=== PATIENT | male | born 1960 | race African-American/Black ===

== ENCOUNTER 2019-05-13 06:17 | Day surgery (SDC) | payer MEDICARE, MEDICAID ==
[~2019-05-13] VITALS: Ht 185.4 cm; Wt 82.1 kg
[2019-05-13] VITALS (10 sets, daily range): BP systolic 101–128; BP diastolic 65–79
[2019-05-13] MEDS ORDERED: Lidocaine 1% MPF 10mg/ml 5ml ONE (07:37)
[2019-05-13] MEDS ORDERED: Ropivacaine 5mg/ml Vial 30ml INJ ONE (07:42)
[2019-05-13] MEDS ORDERED: Midazolam 2mg/2ml Inj ONE (07:54)
[2019-05-13] MEDS ORDERED: fentaNYL 100 mcg/2 mL IV ONE (07:54)
[2019-05-13] MEDS ORDERED: Propofol 200mg/20ml IV ONE (07:56)
[2019-05-13] MEDS ORDERED: Ketorolac 30mg Inj ONE (07:57)
[2019-05-13] MEDS ORDERED: Bupivacaine w/Epi 0.5% 30ml Vial INJ ONE (07:58)
[2019-05-13] MEDS ORDERED: NS Irrig 4000ml IRRIG ONE ×2 (08:14→09:40)
[2019-05-13] MEDS ORDERED: ENSURE HIGH PR414 ML PO (08:35)
[2019-05-13] MEDS ORDERED: VALIUM10 MG ORAL (08:36)
[2019-05-13] MEDS ORDERED: trintellix PO (08:38)
[2019-05-13] MEDS ORDERED: PROAIR HFA8.5 GM INH (08:39)
[2019-05-13] MEDS ORDERED: GABAPENTIN600 MG ORAL (08:40)
[2019-05-13] MEDS ORDERED: TRAZODONE HCL150 MG ORAL (08:42)
[2019-05-13] MEDS ORDERED: SEROSTIM6 M1 SQ (08:42)
[2019-05-13] MEDS ORDERED: MULTIVITAMINS1 EAC2 ORAL (08:43)
[2019-05-13] MEDS ORDERED: AMLODIPINE BESYL5 MG ORAL (08:44)
[2019-05-13] MEDS ORDERED: Descovy PO (08:45)
[2019-05-13] MEDS ORDERED: FLOMAX0.4 MG ORAL (08:48)
[2019-05-13] MEDS ORDERED: ASPIR 8181 MG ORAL (08:48)
[2019-05-13] MEDS ORDERED: Sterile Water Irrig 1000ml IRRIG ONE (09:00)
[2019-05-13] MEDS ORDERED: NS Irrig 1000ml ONE (09:00)
[2019-05-13] MEDS ORDERED: LR 1000ml 1,000 ML IVLG SCH (09:03)
--- NOTE | 2019-05-13 09:03 | Anethesia Preoperative Eval ---
Anesthesia Pre-op PMH/ROS General Date of Evaluation: May 13, 2019 Time of Evaluation: 08:40 Anesthesiologist: Lashay ASA Score: ASA 3 Mallampati Score Class I : Soft palate, uvula, fauces, pillars visible Class II: Soft palate, uvula, fauces visible Class III: Soft palate, base of uvula visible Class IV: Only hard plate visible Mallampati Classification: Class II Surgeon: [place] Diagnosis: R shoulder pain Surgical Procedure: R shoulder scope Anesthesia History: none Social History: smoking - h/o, alcohol use - h/o abuse clean now, drug use - crystal math clean now Family History: no anesthesia problems Allergies: Coded Allergies: No Known Allergies (Verified Allergy, Unknown, 12/30/06) Medications: see eMAR Patient NPO?: Yes Past Medical History Cardiovascular: Reports: HTN - stable on pills; Denies: CAD, [place], valve dz, arrhythmia, other Pulmonary: Denies: asthma, COPD, NACH[place], other Gastrointestinal/Genitourinary: Reports: GERD; Denies: CRI, ESRD, other Neurologic/Psychiatric: Reports: depression/anxiety, other - chronic pain; Denies: dementia, CVA, TIA Endocrine: Reports: hypothyroidism; Denies: DM, steroids, other HEENT: Denies: cataract (L), cataract (R), glaucoma, [place] (L[place] (R), other Hematology/Immune: Reports: other - HIV on antivirals, viral load undetectible ; Denies: anemia, DVT, bleeding disorder Musculoskeletal/Integumentary: Reports: OA; Denies: RA, DJD, DDD, edema, other PMH Narrative: as above PSxH Narrative: hernia repair, lumbar spine fusion Anesthesia Pre-op Phys. Exam Physician Exam Last Vital Signs Date Time Temp Pulse Resp B/P (MAP) Pulse Ox O2 Delivery O2 Flow Rate FiO2 05/13/19 07:34 Room Air 05/13/19 07:08 98.8 75 18 122/74 100 Constitutional: NAD Neurologic: CN 2-12 intact Cardiovascular: RRR, no M/R/G Respiratory: CTA Gastrointestinal: S/NT/ND Airway Exam Mallampati Score: Class II MO: full Neck: flexible ROM: full Teeth: missing, broken Dentures: no upper, no lower Anesthesia Pre-op A/P Labs see chart Studies Pre-op Studies: EKG Risk Assessment & Plan Assessment: ASA 3 Plan: GA with LMA R brachial plexus block for postop pain control Status Change Before Surgery: No Pre-Antibiotics Drug: Ancef 2gr. Given Within 1 Hr of Incision: Yes Time Given: 09:40 Preston Metz MD May 13, 2019 09:03
--- NOTE | 2019-05-13 09:10 | Pre-Procedure Note/Attestation ---
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 I attest that I re-evaluated the patient just prior to the surgery and that there has been no change in the patient's H&P, except as documented below: Santana Mohamud MD May 13, 2019 09:10
[2019-05-13] MEDS ORDERED: DiphenhydrAMINE 50mg/ml Inj IVP PRN (09:15)
[2019-05-13] MEDS ORDERED: Meperidine 25mg/0.5ml Inj (FOR RIGORS ONLY) IV PRN (09:15)
[2019-05-13] MEDS ORDERED: Ketorolac 30mg Inj IV PRN (09:15)
[2019-05-13] MEDS ORDERED: LR 1000ml ONE (09:30)
--- NOTE | 2019-05-13 10:39 | Immediate Post-Op Evaluation ---
Immediate Post-Op Evalulation Immediate Post-Op Evalulation Procedure: R shoulder arthroscopy with subacromion decompression Date of Evaluation: May 13, 2019 Time of Evaluation: 10:38 IV Fluids: 800 Blood Products: none Estimated Blood Loss: min Urinary Output: none Blood Pressure Systolic: 110 Blood Pressure Diastolic: 76 Pulse Rate: 74 Respiratory Rate: 20 O2 Sat by Pulse Oximetry: 99 Temperature (Fahrenheit): 97.6 Pain Score (1-10): 2 Nausea: No Vomiting: No Complications none Patient Status: reacts, patent, none Hydration Status: adequate Preston Metz MD May 13, 2019 10:39
--- NOTE | 2019-05-13 10:51 | Brief Operative Note ---
Immediate Post Operative Note Operative Note Pre-op Diagnosis: Right shoulder partial RTC tear and bursitis and internal derangement Procedure: Right shoulder arthroscopy with extensive debridement and PRP injection Post-op Diagnosis: See Op note - partial labral and RTC tear Surgeon: Larissa Mohamud M.D. Anesthesiologist: Dr Pinto Anesthesia: general Specimen: none Complications: none Condition: stable Fluids: 1000 Estimated Blood Loss: minimal Drains: none Implant(s) used?: No Santana Mohamud MD May 13, 2019 10:51
[2019-05-13] MEDS ORDERED: HYDROcodone/Acetamin 10/325 tab ORAL ONE (11:00)
[2019-05-13] MEDS ORDERED: Ketorolac 30mg Inj IV ONE (11:00)
[2019-05-13] MEDS ORDERED: MONTELUKAST SOD10 MG ORAL (11:30)
[2019-05-13] MEDS ORDERED: OMEPRAZOLE40 M1 ORAL (11:31)
[2019-05-13] MEDS ORDERED: COLACE100 MG ORAL (11:32)
[2019-05-13] MEDS ORDERED: FERROUS SULFAT325 MG ORAL (11:33)
[2019-05-13] MEDS ORDERED: PROSCAR5 MG ORAL (11:34)
[2019-05-13] MEDS ORDERED: HYDROCHLOROTHIA25 MG ORAL (11:35)
[2019-05-13] MEDS ORDERED: PREZCOBIX 8001 EACH PO (11:37)
[2019-05-13] MEDS ORDERED: TIVICAY50 MG ORAL (11:38)
[2019-05-13] MEDS ORDERED: BACTRIM 400-801 EACH ORAL (11:40)
[2019-05-13] MEDS ORDERED: dilaudid PO (11:46)
[2019-05-13] MEDS ORDERED: TERBINAFINE HC250 MG PO (11:47)
[2019-05-13] MEDS ORDERED: OXYCODONE HCL15 M1 ORAL (11:48)
[2019-05-13] MEDS ORDERED: LOTRISONE CREAM15 GM TP (11:49)
--- NOTE | 2019-05-13 12:22 | 48 Hour Post Anesthesia Eval ---
Post Anesthesia Evaluation Procedure: R shoulder arthroscopy with subacromion decompression Date of Evaluation: May 13, 2019 Time of Evaluation: 12:20 Blood Pressure Systolic: 128 0: 74 Pulse Rate: 68 Respiratory Rate: 20 Temperature (Fahrenheit): 97.8 O2 Sat by Pulse Oximetry: 98 Airway: patent Nausea: No Vomiting: No Pain Intensity: 1 Hydration Status: adequate Cardiopulmonary Status: stable Mental Status/LOC: patient returned to baseline Follow-up Care/Observations: n/a Post-Anesthesia Complications: none Follow-up care needed: ready to discharge Preston Metz MD May 13, 2019 12:22
--- NOTE | 2019-05-18 07:30 | Operative Note - Dictated ---
DATE OF OPERATION: 05/13/2019 PREOPERATIVE DIAGNOSIS: Right shoulder derangement with wound care of the rotator cuff. POSTOPERATIVE DIAGNOSIS: Right shoulder glenohumeral joint and partial tear of the supraspinatus tendon. PROCEDURES: Right shoulder arthroscopy with extensive debridement including labral debridement, debridement of rotator cuff and glenoid, and injection of platelet-rich plasma. SURGEON: Santana Mohamud M.D. RADIATION OFFICER: None. ANESTHESIA: General with local block lidocaine. BLOOD LOSS: Minimal. DRAINS: None. COMPLICATIONS: None. INDICATIONS: The patient presented with right shoulder pain and weakness his right side after undergoing a repair fixation approximately 2 years ago. He failed conservative treatment from arthroscopic intervention. Risks, benefits, and alternatives were discussed with the patient. The patient did wish to proceed. OPERATIVE FINDINGS: Examination of the right shoulder demonstrated stable shoulder. 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 DESCRIPTION OF PROCEDURE: The patient was identified in the preoperative area where the . All bony prominences were well padded right shoulder . Next, the patient was given Ancef 1 g IV. Next, standard posterior portal was then created ArthroCare wand was used to debride the labrum as well as the rotator cuff to be evacuated was then turned off. Shoulder was completely drained. Next, under direct arthroscopic visualization, the partial rotator cuff tear was then injected with 4 mL of the patient's PRP. The incisions were then closed in standard fashion. Dressings were applied. The patient was taken to PACU without complications. Santana Mohamud M.D. DR: ROHAN JOB#: [id number] CC:
== END 2019-05-13 12:00 | disposition home or self-care (01) ==
LOC: SUR 06:17 → MERGE 09:00 → SUR 12:00
DX: M75.111 Incomplete rotator cuff tear or rupture of right shoulder, not specified as traumatic (principal)
CPT/HCPCS: 0232T; 29823; J0690; J1885; J2250; J2704; J2795; J3010; J7120; 94003; 94150